=== PATIENT | female | born 1970 | race Caucasian/White ===

== ENCOUNTER 2017-09-25 14:30 | Emergency (ER) | payer OTHER, SELFPAY ==
[2017-09-25 14:33] VITALS: BP 139/96; PULSE 87; RESP 18; TEMP 37.2; O2SAT 98; BMI 29.3
--- NOTE | 2017-09-25 15:43 | ED.VISSUMM ---
- ER Visit Summary Date of Service: 09/25/17 Chief Complaint: Back pain History of Present Illness: The patient is a [address] Cevallos. She reports that on September 10 she injured her back at work bending and putting weight a box of lemonade. States that since that time she has had a continuous sharp pain. Radiates down the back of her right leg to the level of her calf. Radiates down the back of her left leg and then wrap around to the top of her foot. She denies any numbness or weakness in her legs. No problems with her bowels or her bladder. No groin numbness. Physical Examination: Vitals: Stable. Afebrile. General: A&O x 3. NAD. Cardiovascular exam: Regular rate and rhythm, no murmur, rub or gallop. Respiratory exam: Clear to auscultation bilaterally. No wheezes or stridor. Abdominal exam: Soft, nontender, nondistended, normal bowel sounds. No peritoneal signs. Back: Diffuse moderate tenderness to palpation over the lumbar spine and the paraspinous musculature in the lumbar region. No point tenderness. Negative straight leg bilaterally. 5/5 DF, PF, EHL bilaterally. Normal sensation to light touch throughout. Extremity: No clubbing, cyanosis, or edema. Emergency Department Course and Treatment: Patient had an OARS report obtained and it was negative. She was treated with prednisone, naproxen, and Lutz. Treatment Plan: Patient will be discharged on the above medications. I suspect that she has a herniated disc causing radiculopathy and feel that the prednisone may help. She is instructed to follow-up with [facility] in 1 week for another exam. The signs and symptoms of cauda equina syndrome were discussed. The patient is instructed to return for these. Disposition: To home in improved and stable condition. Impression: 1. Lumbar strain with radiculopathy. This note was generated with [employer] dictation software. It may contain incorrect words, spelling, and punctuation that were not noted in review of the chart prior to signing ED Disposition - Plan for ED Patient: Disposition: Home or Assisted Living Chief Complaint: Back Instructions: ED Sciatica Prescriptions: Hydrocodone Bitart/Apap 5-325 [Lutz 5/325] 1 - 2 tablet PO Q4H PRN PRN 5 Days #20 tablet PRN Reason: Pain Naproxen [Naprosyn] 500 mg PO BID PRN #20 tablet Prednisone 10 mg PO DAILY #63 tablet Referrals: [facility] [GROUP OF PHYSICIANS] - 1 Week
--- NOTE | 2017-09-25 15:46 | ED.DCSUM_ITS ---
- ER Visit Summary Date of Service: 09/25/17 Chief Complaint: Back pain History of Present Illness: The patient is a [address] Cevallos. She reports that on September 10 she injured her back at work bending and putting weight a box of lemonade. States that since that time she has had a continuous sharp pain. Radiates down the back of her right leg to the level of her calf. Radiates down the back of her left leg and then wrap around to the top of her foot. She denies any numbness or weakness in her legs. No problems with her bowels or her bladder. No groin numbness. Physical Examination: Vitals: Stable. Afebrile. General: A&O x 3. NAD. Cardiovascular exam: Regular rate and rhythm, no murmur, rub or gallop. Respiratory exam: Clear to auscultation bilaterally. No wheezes or stridor. Abdominal exam: Soft, nontender, nondistended, normal bowel sounds. No peritoneal signs. Back: Diffuse moderate tenderness to palpation over the lumbar spine and the paraspinous musculature in the lumbar region. No point tenderness. Negative straight leg bilaterally. 5/5 DF, PF, EHL bilaterally. Normal sensation to light touch throughout. Extremity: No clubbing, cyanosis, or edema. Emergency Department Course and Treatment: Patient had an OARS report obtained and it was negative. She was treated with prednisone, naproxen, and [place]. Treatment Plan: Patient will be discharged on the above medications. I suspect that she has a herniated disc causing radiculopathy and feel that the prednisone may help. She is instructed to follow-up with [facility] in 1 week for another exam. The signs and symptoms of cauda equina syndrome were discussed. The patient is instructed to return for these. Disposition: To home in improved and stable condition. Impression: 1. Lumbar strain with radiculopathy. This note was generated with [employer] dictation software. It may contain incorrect words, spelling, and punctuation that were not noted in review of the chart prior to signing ED Disposition - Plan for ED Patient: Disposition: Home or Assisted Living Chief Complaint: Back Instructions: ED Sciatica Prescriptions: Hydrocodone Bitart/Apap 5-325 [[place] 5/325] 1 - 2 tablet PO Q4H PRN PRN 5 Days # 20 tablet PRN Reason: Pain Naproxen [Naprosyn] 500 mg PO BID PRN #20 tablet Prednisone 10 mg PO DAILY #63 tablet Referrals: [facility] [GROUP OF PHYSICIANS] - 1 Week
[2017-09-25] MEDS: HYDROcodone Bitartrate/Apap 5/325 Tablet PO (15:58)
[2017-09-25] MEDS: Naproxen 250 MG Tablet 500 MG PO (15:59)
[2017-09-25 16:02] VITALS: PULSE 78; RESP 16
--- NOTE | 2017-09-25 16:03 | ED.RN ---
THIS NURSE REVIEWED D/C INSTRUCTIONS WITH PT. PT VERBALIZED UNDERSTANDING OF INSTRUCTIONS. PT DENIES FURTHER NEEDS OR QUESTIONS AT THIS TIME. PT AMBULATES FROM THE DEPARTMENT ON OWN WITHOUT ASSISTANCE FROM STAFF
== END 2017-09-25 16:03 | disposition home or self-care (01) ==
PROVIDERS: Emergency Provider Emergency Medicine
DX: S39.012A Strain of muscle, fascia and tendon of lower back, initial encounter (principal); M54.16 Radiculopathy, lumbar region; X50.1XXA Overexertion from prolonged static or awkward postures, initial encounter; Y93.9 Activity, unspecified; Y92.9 Unspecified place or not applicable
CPT/HCPCS: 99283

== ENCOUNTER → 2017-10-10 15:18 | Outpatient (CLI) | payer OTHER, SELFPAY ==
--- NOTE | 2017-10-10 15:25 | MRI_ITS ---
STUDY: MRI LUMBAR SPINE WITHOUT CONTRAST REASON FOR EXAM: Female, 47 years old. Lower back pain and in both legs. TECHNIQUE: Standardized fat and water weighted pulse sequences were obtained in the sagittal and axial planes. COMPARISON: None FINDINGS: T12-L1: (Sagittal only). Normal endplates. Normal disc height, hydration and morphology. Normal central canal and bilateral intervertebral neural foramina. Normal lumbar lordosis. There is no substantial scoliosis. Normal conus medullaris that terminates at the mid L1 vertebral body level. L1-2: Normal endplates. Normal disc height, hydration and morphology. Normal bilateral facet joints. Normal central canal and bilateral lateral recesses. Normal bilateral intervertebral neural foramina. L2-3: Normal endplates. Normal disc height, hydration and morphology. Normal bilateral facet joints. Normal central canal and bilateral lateral recesses. Normal bilateral intervertebral neural foramina. L3-4: Normal endplates. Normal disc height, hydration and morphology. Normal bilateral facet joints. Normal central canal and bilateral lateral recesses. Normal bilateral intervertebral neural foramina. L4-5: Normal endplates. Normal disc height, hydration and morphology. Normal bilateral facet joints. Normal central canal and bilateral lateral recesses. Normal bilateral intervertebral neural foramina. L5-S1: Normal endplates. Normal disc height and hydration. Small right posterior paramedian disc protrusion (series 5, image 3). Normal central canal and bilateral lateral recesses. Mild bilateral degenerative facet arthropathy. Normal bilateral intervertebral neural foramina. Normal visualized sacral ala. Normal visualized paraspinous soft tissue structures. MRI/Spine Lumbar (Routine) IMPRESSION: 1. Small right L5-S1 posterior paramedian disc protrusion. 2. No MRI evidence of lumbar extruded disc fragment, spinal stenosis or nerve root displacement. Electronically Signed: Domenic Baer MD at 9:35 EDT , Service support ,
== END ==
PROVIDERS: Visit Provider Physician Assistant Surgical
DX: S39.012A Strain of muscle, fascia and tendon of lower back, initial encounter (principal); X58.XXXA Exposure to other specified factors, initial encounter; M54.16 Radiculopathy, lumbar region
CPT/HCPCS: 72148

== ENCOUNTER → 2017-12-09 14:00 | Outpatient (CLI) | payer OTHER, SELFPAY ==
[2017-12-14 10:49] LABS: HPV APTIMA, High Risk Negative (Negative)
== END ==
PROVIDERS: Visit Provider Nurse Practitioner Women's Health
DX: Z12.4 Encounter for screening for malignant neoplasm of cervix (principal)
CPT/HCPCS: 88175; G0145

== ENCOUNTER → 2017-12-28 07:15 | Outpatient (CLI) | payer OTHER, SELFPAY ==
--- NOTE | 2017-12-28 07:39 | BI_ITS ---
MAMMOGRAPHY - BILATERAL SCREENING 3-D PAULA SYNTHESIS REASON FOR EXAM: Female, 47 years old. Bilateral Screening 3-D tomosynthesis PERTINENT HISTORY: No significant family history. TECHNIQUE: 2-D mammograms and 3-D Paula synthesis of the breast (s) were performed. CAD was performed. COMPARISON: November 06, 2016, January 17, 2016 FINDINGS: The breast composition is composed of scattered fibroglandular density. Scattered benign calcifications are seen. No dense spiculated masses or suspicious microcalcifications are identified. No architectural distortion is identified. There is no skin thickening or retraction. There has been no significant change since the prior study. BI/SCREENING MAMM (CAD), BILAT IMPRESSION: No mammographic signs of malignancy. Routine yearly mammograms recommended. ASSESSMENT CATEGORY: BIRADS Category 2: Benign. A letter regarding these results will be sent to the patient by the facility within 30 days. FOLLOW UP RECOMMENDATION: Yearly follow up mammogram recommended. (A) Approximately 10% of breast cancers are not detected by mammography. A normal mammogram should not delay biopsy of a clinically suspicious abnormality. Electronically Signed: Frandy Chapa MD at 17:32 EDT , Service support ,
== END ==
PROVIDERS: Visit Provider Nurse Practitioner Women's Health
DX: Z12.31 Encounter for screening mammogram for malignant neoplasm of breast (principal)
CPT/HCPCS: 77063; 77067

== ENCOUNTER → 2019-05-21 07:29 | Outpatient (CLI) | payer BC, SELFPAY ==
--- NOTE | 2019-05-21 07:33 | BI_ITS ---
MAMMOGRAPHY - BILATERAL SCREENING REASON FOR EXAM: Female, 48 years old. Routine annual screening examination. PERTINENT HISTORY: Non-contributory. TECHNIQUE: Digital bilateral breast paula (3D mammographic acquisition) in the CC and MLO projections. 2-D mediolateral oblique (MLO) and craniocaudad (CC) views of both breasts were obtained. CAD: Full Field Digital Mammography with Computer Added Detection was performed. COMPARISON: Comparison is made with prior study dated January 03, 2018. FINDINGS: Breast Composition: The breasts are heterogeneously dense, which may obscure small masses. There are no dominant masses or suspicious calcifications. No other significant abnormalities are identified. There has been no significant change since the prior study. BI/SCREEN MAMM (CAD) W/PAULA BILAT IMPRESSION: Stable bilateral screening mammogram. Yearly follow-up mammogram recommended. (A) ASSESSMENT CATEGORY: BIRADS Category 1: Negative. A letter regarding these results will be sent to the patient by the facility within 30 days. Approximately 10% of breast cancers are not detected by mammography. A normal mammogram should not delay biopsy of a clinically suspicious abnormality. [id number] Electronically Signed: Leon Lemus, at 8:54 EDT , Service support ,
== END ==
PROVIDERS: Referring Provider Nurse Practitioner Women's Health; Visit Provider Nurse Practitioner Women's Health
DX: Z12.31 Encounter for screening mammogram for malignant neoplasm of breast (principal)
CPT/HCPCS: 77063; 77067

== ENCOUNTER → 2019-09-01 | Outpatient (CLI) | payer BC, SELFPAY ==
[2019-09-01 08:47] VITALS: BMI 29.5
[2019-09-03 20:51] LABS: HPV APTIMA, High Risk Negative (Negative)
== END | disposition home or self-care (01) ==
LOC: LABSPEC 13:12
PROVIDERS: Referring Provider Nurse Practitioner Women's Health; Visit Provider Nurse Practitioner Women's Health
DX: Z12.4 Encounter for screening for malignant neoplasm of cervix (principal)
CPT/HCPCS: 87624; 88175; G0145

== ENCOUNTER → 2020-08-26 07:24 | Outpatient (CLI) | payer BC, SELFPAY ==
[2019-09-01 08:47] VITALS: BMI 29.5
--- NOTE | 2020-08-25 16:35 | BI_ITS ---
MAMMOGRAPHY - BILATERAL SCREENING REASON FOR EXAM: Female, 50 years old. Routine annual screening examination. PERTINENT HISTORY: Non-contributory. TECHNIQUE: Digital bilateral breast paula (3D mammographic acquisition) in the CC and MLO projections. 2-D mediolateral oblique (MLO) and craniocaudad (CC) views of both breasts were obtained. CAD: Full Field Digital Mammography with Computer Added Detection was performed. COMPARISON: Comparison is made with prior study dated 05/21/2019 and 12/28/2017. FINDINGS: Breast Composition: The breasts are heterogeneously dense, which may obscure small masses. There are no dominant masses or suspicious calcifications. This is an 8.5 mm by 8mm well-defined nodule in the deep central portion of the right breast abutting the chest wall. Correlation with ultrasound is recommended. No other significant abnormalities are identified. BI/SCRN MAMM (CAD)W/PAULA BILAT IMPRESSION: 8.5 mm x 8 mm well-defined nodule in the deep central portion of the right breast abutting the chest wall. Correlation with ultrasound is recommended. ASSESSMENT CATEGORY: BIRADS Category 0: Incomplete. Need additional imaging evaluation. A letter regarding these results will be sent to the patient by the facility within 30 days. Approximately 10% of breast cancers are not detected by mammography. A normal mammogram should not delay biopsy of a clinically suspicious abnormality. [id number] Electronically Signed: Leon Lemus MD at 8:36 EST , Service support ,
== END ==
PROVIDERS: Referring Provider Nurse Practitioner Women's Health; Visit Provider Nurse Practitioner Women's Health
DX: Z12.31 Encounter for screening mammogram for malignant neoplasm of breast (principal)
CPT/HCPCS: 77063; 77067

== ENCOUNTER → 2020-08-29 08:27 | Outpatient (CLI) | payer BC, SELFPAY ==
[2019-09-01 08:47] VITALS: BMI 29.5
--- NOTE | 2020-08-29 08:28 | US_ITS ---
STUDY: ULTRASOUND BREAST - RIGHT REASON FOR EXAM: Female, 50 years old. Abnormal screening mammogram. TECHNIQUE: Axial and longitudinal images of the RIGHT breast were performed with a high resolution ultrasound transducer. # OF IMAGES: 44 COMPARISON: Comparison is made with prior mammogram dated 08/25/2020. FINDINGS: RIGHT Breast: There is a 5.5 mm x 4.5 mm cyst at the 10 o''clock position breast 2 cm from nipple. No abnormality is seen deep along the chest wall. This most likely represents small amount of fibroglandular tissue. US/Breast Limited Unilateral IMPRESSION: 5.5 mm x 4.5 mm cyst at the 10 o''clock position of the breast at 2 cm from the nipple. ASSESSMENT CATEGORY: BIRADS Category 0: Incomplete. Need additional imaging evaluation. A letter regarding these results will be sent to the patient by the facility within 30 days. Electronically Signed: Leon Lemus MD at 9:36 EST , Service support ,
== END ==
PROVIDERS: Referring Provider Nurse Practitioner Women's Health; Visit Provider Nurse Practitioner Women's Health
DX: N60.01 Solitary cyst of right breast (principal)
CPT/HCPCS: 76642

== ENCOUNTER 2021-09-12 08:19 | Outpatient (CLI) | payer BC, SELFPAY ==
--- NOTE | 2021-09-12 08:21 | BI_ITS ---
MAMMOGRAPHY - BILATERAL SCREENING REASON FOR EXAM: Female, 51 years old. Routine annual screening examination. PERTINENT HISTORY: Non-contributory. TECHNIQUE: Digital bilateral breast paula (3D mammographic acquisition) in the CC and MLO projections. 2-D mediolateral oblique (MLO) and craniocaudad (CC) views of both breasts were obtained. CAD: Full Field Digital Mammography with Computer Added Detection was performed. COMPARISON: Comparison is made with prior study dated 08/17/2020 and 05/21/2019. FINDINGS: Breast Composition: The breasts are heterogeneously dense, which may obscure small masses. There are no dominant masses or suspicious calcifications. Stable 8.5 mm x 8 mm well-defined nodule in the deep central portion of the right breast abutting the chest wall. Repeat targeted ultrasound of this nodule is recommended. No other significant abnormalities are identified. BI/SCRN MAMM (CAD)W/PAULA BILAT IMPRESSION: Stable bilateral screening mammogram. Repeat sonogram of the nodular density in the deep central portion of the right breast is recommended. ASSESSMENT CATEGORY: BIRADS Category 0: Incomplete. Need additional imaging evaluation. A letter regarding these results will be sent to the patient by the facility within 30 days. Approximately 10% of breast cancers are not detected by mammography. A normal mammogram should not delay biopsy of a clinically suspicious abnormality. [id number] Electronically Signed: Leon Lemus MD at 9:13 EST ,
== END 2021-09-12 23:59 | disposition home or self-care (01) ==
LOC: OPBI 08:19
PROVIDERS: PCP Family Medicine; Referring Provider Nurse Practitioner Women's Health; Visit Provider Nurse Practitioner Women's Health
DX: Z12.31 Encounter for screening mammogram for malignant neoplasm of breast (principal)
CPT/HCPCS: 77063; 77067

== ENCOUNTER 2021-09-20 12:14 | Outpatient (CLI) | payer BC, SELFPAY ==
--- NOTE | 2021-09-20 12:17 | US_ITS ---
STUDY: ULTRASOUND BREAST - RIGHT REASON FOR EXAM: Female, 51 years old. Abnormal screening mammogram. TECHNIQUE: Axial and longitudinal images of the RIGHT breast were performed with a high resolution ultrasound transducer. # OF IMAGES: 42 COMPARISON: Comparison is made with prior mammogram dated 08/29/2020. FINDINGS: RIGHT Breast: The mammographic abnormality corresponds to a 5 mm x 5 mm x 5 mm cyst at the 10 o''clock position of the breast at 2 cm from the nipple. Ultrasound examination of the deep central portion of the breast does not demonstrate any abnormality. US/Breast Limited Unilateral IMPRESSION: The mammographic abnormality corresponds with 5 mm x 5 mm x 5 mm cyst at the 10 o''clock position of the breast at 2 cm from the nipple. ASSESSMENT CATEGORY: BIRADS Category 2: Benign. A letter regarding these results will be sent to the patient by the facility within 30 days. Electronically Signed: Leon Lemus MD at 13:22 EST ,
== END 2021-09-20 23:59 | disposition home or self-care (01) ==
LOC: OPUS 12:15
PROVIDERS: PCP Family Medicine; Referring Provider Nurse Practitioner Women's Health; Visit Provider Nurse Practitioner Women's Health
DX: N63.41 Unspecified lump in right breast, subareolar (principal)
CPT/HCPCS: 76642

== ENCOUNTER 2021-09-26 07:48 | Day surgery (SDC) | payer BC, SELFPAY ==
[2021-09-26] VITALS (7 sets, daily range): BP systolic 99–134; BP diastolic 61–79; PULSE 68–81; RESP 16; TEMP 36.1–36.6; O2SAT 98–100; BMI 28.8
--- NOTE | 2021-09-26 | IMM_PTH ---
PATIENT: NICHOLAS BUTTS LOC: EN U#:[id number] AGE/SX: 51/F ROOM: RE09/26/[address]: Dr. Ralph Santoyo MD : 1970 BED: DIS: 09/26/2021 SPEC #: [id number] RECD: 09/27/21 07:38 STATUS: BRAYAN REMary #: [id number] YADY: 09/26/21 00:[address]: Ralph Santoyo DEPT: IMMUNOHISTOCHEMISTRY RECD BY: Radha Brooks ENTERED: 09/27/21 07:39 SP TYPE: IMMUNO OTHR DR: Dr. Shahla Florez, DO Tissues: A - Stomach, NOS Procedures: H Pylori (initial) PHYSICIAN & INSTITUTION [place] [id number] SPECIMEN INFORMATION: Tissue Source: A - Antrum Clinical Info: LUQ abdominal pain Specimen Number: [id number] CPT code: 87624 METHODOLOGY: Deparaffinized sections of prefer/formalin-fixed tissue or PAP/DQ stained slides are incubated with monoclonal/polyclonal antibodies/oligonucleotide probes. Localization is made via biotin free immunoperoxidase method. Appropriate controls are performed and reacted as expected. Results on target cell population are indicated in the following table: RESULTS: ANTIBODY / CLONE RESULT Block A H Pylori (polyclonal) negative These tests were developed and their performance characteristics determined by [facility]. They may not have been cleared or approved by the U.S. Food and Drug Administration. The FDA has determined that such clearance or approval is not necessary. INTERPRETATION: A. Antrum biopsy: Negative for Helicobacter pylori organisms. SJ:chuck 09/27/2021
--- NOTE | 2021-09-26 | GASB_PTH ---
PATIENT: NICHOLAS BUTTS LOC: EN U#:[id number] AGE/SX: 51/F ROOM: RE09/26/[address]: Dr. Ralph Santoyo MD : 1970 BED: DIS: 09/26/2021 SPEC #: [id number] RECD: 09/26/21 10:55 STATUS: BRAYAN REMary #: [id number] YADY: 09/26/21 00:[address]: Ralph Santoyo DEPT: SURGICAL PATHOLOGY RECD BY: Andrews Amaral ENTERED: 09/26/21 10:56 SP TYPE: Gastric Bx OTHR DR: Dr. Shahla Florez DO Tissues: A - Gastric mucous membrane B - Gastric mucous membrane Procedures: Special Stain Group II Surgery Specimen Level IV Alcian Blue/PAS (control) HEADER OPERATION: [place] [place] DIAGNOSIS: Left upper quadrant abdominal pain TISSUE SUBMITTED: A ? Antrum, H. pylori and path, B ? Gastroesophageal junction biopsy MICROSCOPIC DIAGNOSIS A. Antrum, biopsy: Mild gastritis. See microscopic description and comment. B. Gastroesophageal junction, biopsy: Fragments of gastroesophageal mucosa with mild chronic inflammation. Intestinal metaplasia (goblet cell metaplasia) not identified. See comment. SJ:rg 09/27/2021 COMMENT A. The results of immunohistochemistry for Helicobacter pylori will be reported separately ([id number]). A fragment is noted consistent entirely with actinomyces colony, most likely represents mouth contaminant. B. Alcian blue/PAS stain with matched control is used in the evaluation of the specimen. MICROSCOPIC DESCRIPTION Slides are reviewed. A. The specimen shows fragments of gastric mucosa with chronic inflammatory cell infiltrates in the lamina propria consisting of lymphocytes and plasma cells, consistent with mild chronic gastritis. GROSS DESCRIPTION A - Received in fixative is one container labeled with the patient's name and designated antrum biopsy. The specimen consists of multiple irregular fragments of light ocampo soft tissue that in aggregate measure 0.8 x 0.5 x 0.1 cm. The specimen is totally submitted in one cassette. B - Received in fixative is one container labeled with the patient's name and designated GE junction biopsy. The specimen consists of multiple irregular fragments of light ocampo soft tissue that in aggregate measure 0.8 x 0.2 x 0.1 cm. The specimen is totally submitted in one cassette. / SJ:rg 09/26/2021 TC:5 CPT: 73729 x2, 04449
[2021-09-26] MEDS: Lactated Ringers 1,000 ML 15 ML IV (08:22)
--- NOTE | 2021-09-26 08:43 | PCM.HP.BLA ---
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 Is patient in pain?: No Allergies Sulfa (Sulfonamide Antibiotics) Allergy (Verified 09/20/21 15:06) Other Medications ascorbate calcium (vitamin C) 500 mg tablet 500 mg PO DAILY 09/05/20 [History Confirmed 09/20/21] cyanocobalamin (vitamin B-12) 1,000 mcg capsule 1,000 mcg PO DAILY 09/05/20 [History Confirmed 09/20/21] zinc 50 mg tablet 50 mg PO DAILY 09/05/20 [History Confirmed 09/20/21] baclofen 5 mg tablet 5 mg PO BID PRN 09/12/21 [History Confirmed 09/20/21] pseudoephedrine HCl 30 mg tablet 30 mg PO ONCE PRN 09/12/21 [History Confirmed 09/20/21] omeprazole magnesium 20 mg tablet,delayed release 40 mg PO DAILY tab 09/20/21 [History Confirmed 09/20/21] [facility] Medical History (Updated 09/20/21 @ 15:[address] Ralph Santoyo MD) Acid reflux Lumbar strain Posterior herniation of lumbar disc Surgical History Hx of removal of ovary Hx of tympanostomy tubes Family History Father Heart disease Brother Myocardial infarction Other Cancer Hypertension Social History household members: family housing: house current occupational status: employed pets and animals: No Smoking Status: Never smoker second hand exposure: No alcohol intake: never substance use type: does not use caffeine: Yes what type of physical activity do you participate in: none seatbelt use: always do you feel safe at home: Yes additional social history: [employer] Patient works at [employer] Raised 3 step children HPI HPI HPI: NICHOLAS BUTTS, is a 51 F who presents to the office today for left upper quadrant pain. Patient reports she started having left upper quadrant pain about a year ago and was put on omeprazole and this did not help. She stopped it and was taking it periodically and resumed it daily about 3 weeks ago and has had some minimal improvement. Patient also reports that she has this pain when she is constipated and having a bowel movement does improve it. It is only in the left upper quadrant and does not radiate. ROS General General: No weight change, appetite, fatigue, colon cancer, breast cancer or weakness HEENT HEENT: No difficulty swallowing, eye injury, eye surgery, swollen glands or hoarseness Endo Endocrine: No thyroid disease, diabetes mellitus, thyroid cancer, Hair loss, heat intolerance or cold intolerance Skin Skin: No rash or changing moles Musc Musculoskeletal: Yes back problems and arthritis; No rheumatoid arthritis, gout or joint pain Cardio Cardiovascular: No murmur, pacemaker, heart disease, atrial fibrillation, high blood pressure, heart attack, heart stent, palpitations, shortness of breat with exertion or chest pain Psych Psychiatric: Yes anxiety; No depression or hearing voices Resp Respiratory: No shortness of breath, No sleep apnea, No cough, No COPD, No asthma, No emphysema and No wheezing Gastro Gastrointestinal: Yes abdominal pain, No nausea or vomiting, No diarrhea, Yes constipation, No blood in stool, Yes acid reflux, No hemorrhoids, No ulcers, No gallbladder problem and No black,tarry stools Heath Hematologic: No blood thinners, Yes blood disorders, No bleeding, No anemia and No blood clots Additional Details: Low fibrinogen levels Neuro Neurologic: No system reviewed and no additional complaints, except as documented, No as per HPI, No abnormal gait, No abnormal hearing, No abnormal movements, No abnormal speech, No behavioral changes, No burning sensations, No confusion, No convulsions, No disequilibrium, No dizziness, No localized weakness, No frequent falls, No headache(s), No lack of coordination, No loss of vision, No memory loss, No numbness, No other visual disturbances, No radicular pain, No restless legs, No sensory deficit, No syncope, Yes tingling (In legs from back injury), No tremor(s), No weakness and No other Exam Const General: cooperative Orientation: alert and oriented x3 HENMT Head: normal to inspection Neck Neck: normal visual inspection and full ROM Chest Chest palpation & inspection: normal inspection of the chest Resp Effort & Inspection: normal respiratory effort Auscultation: clear to auscultation bilaterally Cardio Rate: regular rate Rhythm: regular rhythm GI Inspection: non-distended Palpation: soft and nontender Skin General: no rashes or lesions noted Neuro General: patient alert and patient oriented x3 Extrem General: full ROM Psych Appearance: grossly normal Mental Status: mental status grossly normal Assessment and Plan Assessment and Plan (1) LUQ abdominal pain: Status: Acute Orders: Orders: EGD Today Plan - Dr. Ralph Santoyo MD: Patient has left upper quadrant pain which may be gastritis or related to her constipation as both the omeprazole and having bowel movements did help. I advised her to start taking MiraLAX daily if she is not having normal bowel movements. I would recommend EGD and colonoscopy to evaluate. I explained endoscopy in detail to the patient. I explained the risks including but not limited to stroke or heart attack with anesthesia, perforation of the GI tract, bleeding, infection. I explained that any of these could necessitate further emergency surgery. The patient understands and all questions were answered sufficiently. The patient wishes to proceed with procedure. Ralph Santoyo MD Pager: [facility] [address] [place] [address], [address] [place] [address] Office: I have re-examined the patient. There are no clinical changes since date of exam.
--- NOTE | 2021-09-26 09:15 | OP.EGD_ITS ---
Patient Name: Lilo Kirk Procedure Date: 09/26/2021 8:44 AM Date of : 1970 Age: 51 Procedure: Upper GI endoscopy Indications: Abdominal pain in the left upper quadrant Providers: Ralph Santoyo MD Medicines: Monitored Anesthesia Care Patient Profile: This is a 51 year old female. Refer to note in patient chart for documentation of history and physical. Complications: No immediate complications. Estimated blood loss: Minimal. Procedure: Pre-Anesthesia Assessment: - Prior to the procedure, a History and Physical was performed, and patient medications and allergies were reviewed. The patient's tolerance of previous anesthesia was also reviewed. The risks and benefits of the procedure and the sedation options and risks were discussed with the patient. All questions were answered, and informed consent was obtained. Prior Anticoagulants: The patient has taken no previous anticoagulant or antiplatelet agents. After reviewing the risks and benefits, the patient was deemed in satisfactory condition to undergo the procedure. After obtaining informed consent, the endoscope was passed under direct vision. Throughout the procedure, the patient's blood pressure, pulse, and oxygen saturations were monitored continuously. The Endoscope was introduced through the mouth, and advanced to the second part of duodenum. The upper GI endoscopy was accomplished without difficulty. The patient tolerated the procedure well. Scope In: 8:54:10 AM Scope Out: 8:57:32 AM Total Procedure Duration Time 0 hours 3 minutes 22 seconds Findings: One tongue of salmon-colored mucosa was present. Biopsies were taken with a cold forceps for histology. The stomach was normal. The examined duodenum was normal. Biopsies were taken with a cold forceps in the gastric antrum for Helicobacter pylori testing. 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 Biopsied. - Normal stomach. - Normal examined duodenum. - Biopsies were taken with a cold forceps for Helicobacter pylori testing. Recommendation: - Discharge patient to home. - Resume previous diet. - Continue present medications. - Await pathology results. Procedure Code(s): --- Professional --- 84173, Esophagogastroduodenoscopy, flexible, transoral; with biopsy, single or multiple Diagnosis Code(s): --- Professional --- K22.8, Other specified diseases of esophagus R10.12, Left upper quadrant pain CPT copyright 2017 [employer]. All rights reserved. The codes documented in this report are preliminary and upon certified coder review may be revised to meet current compliance requirements. Ralph Santoyo MD 09/26/2021 9:14:11 AM This report has been signed electronically. Number of Addenda: 0 Note Initiated On: 09/26/2021 8:44 AM
--- NOTE | 2021-09-26 09:15 | OP.CCLET_ITS ---
09/26/2021 Shahla Florez Do Re : Upper GI endoscopy procedure for iLlo Kirk Dear Dr. Florez This procedure was performed on Sunday, September 26, 2021. 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 Biopsied. - Normal stomach. - Normal examined duodenum. - Biopsies were taken with a cold forceps for Helicobacter pylori testing. Recommendations : - Discharge patient to home. - Resume previous diet. - Continue present medications. - Await pathology results. My findings are described in the full procedure note, which is enclosed. If I can be of further assistance, please feel free to contact me at Doctor phone number(s): , Work: . Sincerely, Ralph Santoyo MD 09/26/2021 9:14:11 AM This report has been signed electronically.
--- NOTE | 2021-09-26 09:18 | OP.COLON_ITS ---
Patient Name: Lilo Kirk Procedure Date: 09/26/2021 8:59 AM Date of : 1970 Age: 51 Procedure: Colonoscopy Indications: Screening for colorectal malignant neoplasm Providers: Ralph Santoyo MD Medicines: Monitored Anesthesia Care Patient Profile: This is a 51 year old female. Refer to note in patient chart for documentation of history and physical. Last Colonoscopy: none. The patient's first colonoscopy is today. Complications: No immediate complications. Procedure: Pre-Anesthesia Assessment: - Prior to the procedure, a History and Physical was performed, and patient medications and allergies were reviewed. The patient's tolerance of previous anesthesia was also reviewed. The risks and benefits of the procedure and the sedation options and risks were discussed with the patient. All questions were answered, and informed consent was obtained. Prior Anticoagulants: The patient has taken no previous anticoagulant or antiplatelet agents. After reviewing the risks and benefits, the patient was deemed in satisfactory condition to undergo the procedure. - Prior to the procedure, a History and Physical was performed, and patient medications and allergies were reviewed. The patient's tolerance of previous anesthesia was also reviewed. The risks and benefits of the procedure and the sedation options and risks were discussed with the patient. All questions were answered, and informed consent was obtained. Prior Anticoagulants: The patient has taken no previous anticoagulant or antiplatelet agents. After reviewing the risks and benefits, the patient was deemed in satisfactory condition to undergo the procedure. After I obtained informed consent, the scope was passed under direct vision. Throughout the procedure, the patient's blood pressure, pulse, and oxygen saturations were monitored continuously. The colonoscope was introduced through the anus and advanced to the cecum, identified by appendiceal orifice and ileocecal valve. The colonoscopy was performed without difficulty. The patient tolerated the procedure well. The quality of the bowel preparation was good. Scope In: 9:00:07 AM Scope Withdrawal Time 0 hours 6 minutes 1 second Scope Out: 9:09:28 AM Total Procedure Duration Time 0 hours 9 minutes 21 seconds Findings: The entire examined colon appeared normal on direct and retroflexion views. Impression: - The entire examined colon is normal on direct and retroflexion views. - No specimens collected. Recommendation: - Discharge patient to home. - Resume previous diet. - Continue present medications. - Repeat colonoscopy in 10 years for screening purposes. Procedure Code(s): --- Professional --- 33603, Colonoscopy, flexible; diagnostic, including collection of specimen(s) by brushing or washing, when performed (separate procedure) Diagnosis Code(s): --- Professional --- Z12.11, Encounter for screening for malignant neoplasm of colon CPT copyright 2017 [employer]. All rights reserved. The codes documented in this report are preliminary and upon rn integrated review may be revised to meet current compliance requirements. Ralph Santoyo MD 09/26/2021 9:18:01 AM This report has been signed electronically. Number of Addenda: 0 Note Initiated On: 09/26/2021 8:59 AM
--- NOTE | 2021-09-26 09:18 | OP.CCLET_ITS ---
09/26/2021 Shahla Florez Do Re : Colonoscopy procedure for Lilo Kirk Dear Dr. Florez This procedure was performed on Sunday, September 26, 2021. My impressions and recommendations are as follows: Impressions : - The entire examined colon is normal on direct and retroflexion views. - No specimens collected. Recommendations : - Discharge patient to home. - Resume previous diet. - Continue present medications. - Repeat colonoscopy in 10 years for screening purposes. My findings are described in the full procedure note, which is enclosed. If I can be of further assistance, please feel free to contact me at Doctor phone number(s): , Work: . Sincerely, Ralph Santoyo MD 09/26/2021 9:18:01 AM This report has been signed electronically.
== END 2021-09-26 23:59 | disposition home or self-care (01) ==
LOC: EN 07:57 → AC 07:58
PROVIDERS: PCP Family Medicine; Referring Provider Family Medicine; Visit Provider Surgery
PROC: 0DJD8ZZ Inspection of Lower Intestinal Tract, Via Natural or Artificial Opening Endoscopic (ICD-10-PCS; CPT 45378; principal; 2021-09-26 08:55)
DX: Z12.11 Encounter for screening for malignant neoplasm of colon (principal); K29.70 Gastritis, unspecified, without bleeding; K21.9 Gastro-esophageal reflux disease without esophagitis; M19.90 Unspecified osteoarthritis, unspecified site; G25.81 Restless legs syndrome; Z78.0 Asymptomatic menopausal state
CPT/HCPCS: 45378; 43239; 88305; 88313; 88342; J7120

== ENCOUNTER 2021-10-17 09:36 | Outpatient (CLI) | payer BC, SELFPAY ==
[2021-10-17 10:34] LABS: Estradiol 74.5 pg/mL; Follicle Stimulating Hormone 30.1 mIU/mL
== END 2021-10-17 23:59 | disposition home or self-care (01) ==
LOC: PAVLAB 09:38
PROVIDERS: PCP Family Medicine; Referring Provider Obstetrics & Gynecology; Visit Provider Obstetrics & Gynecology
DX: N95.0 Postmenopausal bleeding (principal)
CPT/HCPCS: 36415; 82670; 83001

== ENCOUNTER 2021-10-20 07:42 | Outpatient (CLI) | payer BC, SELFPAY ==
--- NOTE | 2021-10-20 07:44 | US_ITS ---
STUDY: ULTRASOUND OF THE FEMALE PELVIS - COMPLETE REASON FOR EXAM: Female, 51 years old. AUB LMP 2YRS AGO LMP: 2 years ago TECHNIQUE: Transabdominal and Transvaginal TECHNICAL QUALITY: Adequate. COMPARISON: None. FINDINGS: The uterus is anteverted and is tilted to the left side of the pelvis. The uterus measures 6.8 x 4.6 x 3.5 cm. Polypoid structure within the cervical canal measures 8 x 8 x 4 mm without discrete vascular flow. The endometrium measures 4.3 mm in thickness, and is hyperechoic. There is no demonstrated endometrial mass. There is no demonstrated myometrial mass. I.U.D. - The patient does not have an I.U.D. The right ovary is visualized. The right ovary measures 2.5 x 1.7 x 1.4 cm. There is no right ovarian cyst or ovarian mass. There is no visualized right adnexal mass or complex lesion. There is normal arterial and normal venous vascularity. The left ovary is non-visualized.. There is no fluid in the cul-de-sac. Visualized urinary bladder is unremarkable. US/Pelvic (Non ) IMPRESSION: 1. Possible endocervical canal polyp without vascular flow, measuring 8 x 8 x 4 mm. Electronically Signed: Neto Soria MD ([place]) at 16:10 EDT Reading Location ID and State: , Service support ,
--- NOTE | 2021-10-20 07:44 | US_ITS ---
STUDY: ULTRASOUND OF THE FEMALE PELVIS - COMPLETE REASON FOR EXAM: Female, 51 years old. AUB LMP 2YRS AGO LMP: 2 years ago TECHNIQUE: Transabdominal and Transvaginal TECHNICAL QUALITY: Adequate. COMPARISON: None. FINDINGS: The uterus is anteverted and is tilted to the left side of the pelvis. The uterus measures 6.8 x 4.6 x 3.5 cm. Polypoid structure within the cervical canal measures 8 x 8 x 4 mm without discrete vascular flow. The endometrium measures 4.3 mm in thickness, and is hyperechoic. There is no demonstrated endometrial mass. There is no demonstrated myometrial mass. I.U.D. - The patient does not have an I.U.D. The right ovary is visualized. The right ovary measures 2.5 x 1.7 x 1.4 cm. There is no right ovarian cyst or ovarian mass. There is no visualized right adnexal mass or complex lesion. There is normal arterial and normal venous vascularity. The left ovary is non-visualized.. There is no fluid in the cul-de-sac. Visualized urinary bladder is unremarkable. US/Transvaginal Non- IMPRESSION: 1. Possible endocervical canal polyp without vascular flow, measuring 8 x 8 x 4 mm. Electronically Signed: Neto Soria MD ([place]) at 16:10 EDT Reading Location ID and State: , Service support ,
--- NOTE | 2021-10-20 09:42 | RAD_ITS ---
STUDY: X-RAY - LEFT SHOULDER REASON FOR EXAM: Female, 51 years old. SHOULDER PAIN TECHNIQUE: 4 view(s) of the shoulder. COMPARISON: None. FINDINGS: Normal glenohumeral articulation. Normal acromioclavicular joint. Normal acromion. Normal humeral head and visualized proximal humerus. The soft tissue structures are unremarkable. Normal visualized pulmonary apex. RAD/Shoulder min 2 Views IMPRESSION: Normal x-ray examination of the shoulder. Electronically Signed: Prieto Crouch MD at 10:52 EDT ,
--- NOTE | 2021-10-20 09:44 | RAD_ITS ---
STUDY: X-RAY - CERVICAL SPINE REASON FOR EXAM: Female, 51 years old. NECK PAIN TECHNIQUE: 5 view(s) of the cervical spine were obtained. COMPARISON: None FINDINGS: Normal anterior atlantoaxial articulation. Normal odontoid process. Normal cervical lordosis. Normal vertebral bodies and endplates. Focal disc space narrowing and osteophyte formation at C5/C6 consistent with degenerative disc disease. Normal visualized intervertebral neuroforamina. The soft tissue structures are unremarkable. RAD/Cerv Spine 4 or 5 Views IMPRESSION: Focal moderate degenerative disc disease at C5/C6. MRI would be useful. Electronically Signed: Prieto Crouch MD at 10:52 EDT ,
== END 2021-10-20 23:59 | disposition home or self-care (01) ==
LOC: US 07:43 → RAD 09:41
PROVIDERS: PCP Family Medicine; Referring Provider Nurse Practitioner Family; Visit Provider Nurse Practitioner Family
DX: M54.2 Cervicalgia (principal); M25.512 Pain in left shoulder
CPT/HCPCS: 72050; 73030; 76830; 76856

== ENCOUNTER 2021-11-28 09:24 | Day surgery (SDC) | payer BC, SELFPAY ==
[2021-11-28] VITALS (8 sets, daily range): BP systolic 136–171; BP diastolic 73–95; PULSE 51–63; RESP 16–18; TEMP 36.1–36.3; O2SAT 95–99; BMI 29.7
[2021-11-28] MEDS: Lactated Ringers 1,000 ML 15 ML IV (09:40)
[2021-11-28 10:08] LABS: Absolute Lymphocyte Count 1.57 X10^3/uL (0.83-4.51); Absolute Neutrophil Count 2.9 X10^3/uL (2.0-7.7); Basophil# 0.03 X10^3/uL; Basophil% 0.6 % (0-1); Eosinophil# 0.09 X10^3/uL; Eosinophils% 1.8 % (0-5); Hematocrit 43.5 % (37-47); Hemoglobin 14.3 g/dL (12.0-15.0); Lymphocyte # 1.57 X10^3/ul (0.83-4.51); Lymphocyte % 31.6 % (19-41); Mean Corp Hgb Conc 32.9 g/dL (32-36); Mean Corpuscular Hgb 31.5 pg (27.0-32.0); Mean Corpuscular Volume 95.8 fL (81-99); Mean Platelet Vol. 9.9 fl (6.2-12.0); Monocyte# 0.35 X10^3/uL; NRBC Flagged by Analyzer 0 % (0-5); Neutrophil # 2.91 X10^3/uL (2.7-7.7); Neutrophil % 58.6 % (47-70); Platelet Count 280 K/mm3 (150-450); RBC Distribution Width CV 12.8 % (11.6-14.6); RBC Distribution Width SD 45.1 fl (35.1-43.9); Red Blood Count 4.54 M/mm3 (4.2-5.4)
--- NOTE | 2021-11-28 11:00 | EMB_PTH ---
PATIENT: NICHOLAS BUTTS LOC: [facility] U#:[id number] AGE/SX: 51/F ROOM: RE11/28/[address]: Dr. Amita Bernal MD : 1970 BED: DIS: 11/28/2021 SPEC #: [id number] RECD: 11/28/21 18:55 STATUS: BRAYAN REMary #: [id number] YADY: 11/28/21 11:[address]: Amita Bernal DEPT: SURGICAL PATHOLOGY RECD BY: Miguelina Schreiber ENTERED: 11/29/21 09:29 SP TYPE: ENDOM BX/C TOM DR: Dr. Shahla Florez DO Tissues: Endometrium, NOS Procedures: Surgery Specimen Level IV HEADER OPERATION: Hysteroscopy PRE-OP DIAGNOSIS: Postmenopausal bleeding, Cervical stenosis TISSUE SUBMITTED: Endometrial Curettings MICROSCOPIC DIAGNOSIS Endometrium, curettings: Scant strips of benign superficial endocervix and endometrium. Rare fragments of detached benign squamous mucosa. AM:chuck 11/30/2021 MICROSCOPIC DESCRIPTION Slides are reviewed. GROSS DESCRIPTION Received in fixative is one container labeled with the patient's name and designated endometrial curettings. The specimen consists of multiple fragments of hemorrhagic soft tissue that in aggregate measure 2.5 x 1 x 0.1 cm. The specimen is totally submitted in one cassette. / SJ:chuck 11/29/2021 TC:5 CPT: 42991
--- NOTE | 2021-11-28 12:30 | PCM.HP.BLA ---
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 Is patient in pain?: No Allergies Sulfa (Sulfonamide Antibiotics) Allergy (Verified 11/02/21 09:00) Other Medications omeprazole magnesium 20 mg tablet,delayed release 40 mg PO DAILY tab 09/20/21 [History Confirmed 11/02/21] Is last menstrual period known: No Post menopausal: No Patient : No : No PFSH Medical History Acid reflux Back pain Former smoker Gastric reflux History of steroid therapy Leg cramps Lumbar strain Post-menopausal Posterior herniation of lumbar disc Restless legs Wears glasses Wears hearing aid Surgical History Hx of removal of ovary Hx of tympanostomy tubes Family History Father Heart disease Brother Myocardial infarction Other Cancer Hypertension Social History household members: family housing: house current occupational status: employed pets and animals: No Smoking Status: Former smoker second hand exposure: No alcohol intake: never substance use type: does not use caffeine: Yes what type of physical activity do you participate in: none seatbelt use: always do you feel safe at home: Yes additional social history: [email or web address] Patient works at [employer] Raised 3 step children HPI U/S REVIEW Details: NICHOLAS BUTTS is a 51 year old who presents for consultaiton. she had an episode of postmenopausal bleeding with clots lasted a few days, had been postmenopausal over a year, she had a visit and had cervical stenosis so unable to have sampling. Ultrasound shows endometrial polyp. she denies any pelvic pain or pressure. Female Reproductive History Menopausal Symptoms: No night sweats Pregancy History 0 Elective abortions Hx Para Spontaneous abortions Hx # Term Pregnancies Ectopic pregnancies Hx # Pregnancies Multiple births # of living children ROS Const Constitutional: Denies fatigue, fever(s), headache(s), increased appetite, poor appetite, night sweats, weight gain or weight loss ENT ENT: Reports system reviewed and no additional complaints, except as documented Cardio Card: Denies chest pain Resp Resp: Denies cough or dyspnea GI GI: Reports as per HPI; Denies abdominal pain, constipation, nausea or vomiting : Denies nipple discharge, urinary frequency, urinary incontinence, urinary hesitancy, urinary urgency, vaginal discharge, vaginal dryness, vaginal odor or vaginal pruritus Musc Musc: Denies arthralgias, back pain or muscle weakness Skin Skin/Breast: Denies alopecia, change in hair, dry skin, breast mass, breast pain, breast skin changes or nipple discharge Neuro Neuro: Reports system reviewed and no additional complaints, except as documented Psych Psych: Reports system reviewed and no additional complaints, except as documented Endo Endo: Denies cold intolerance, excessive sweating, heat intolerance or polydipsia Heath/Lymph Hematologic/Lymphatic: Denies easy bleeding, Denies easy bruising and Denies lymphadenopathy Exam Const General: cooperative, healthy appearing, comfortable, no acute distress and well developed Nutritional Appearance: average body habitus Orientation: alert [facility] Head: normal to inspection and normocephalic Ears: hearing grossly normal bilaterally and external ears normal Nose: external nose normal and nares normal Face and sinus: normal facial exam Neck Neck: normal visual inspection and trachea midline Thyroid: thyroid normal Chest Chest palpation & inspection: normal inspection of the chest Resp Effort & Inspection: normal respiratory effort Auscultation: clear to auscultation bilaterally Cardio Rate: regular rate Rhythm: regular rhythm Heart Sounds: S1 normal and S2 normal GI Inspection: normal to inspection and non-distended Palpation: soft and no hepatosplenomegaly Musc Other: gross motor intact no deficits, full bilateral strength Skin General: no rashes or lesions noted Neuro General: patient alert, patient awake, moves all extremities and no focal motor deficits Motor: muscle tone normal throughout Extrem General: normal to inspection and no pedal edema Psych Appearance: grossly normal Mental Status: mental status grossly normal Affect: normal affect Speech and Movement: speech and movement normal Coding Level of Care Code Off vis,est,level 4 Diagnoses Postmenopausal bleeding N95.0 Cervical stenosis (uterine cervix) N88.2 Assessment and Plan Assessment and Plan (1) Postmenopausal bleeding: Status: Acute Comment: polyp present plan d and c hysteroscopy symphion (2) Cervical stenosis (uterine cervix): Status: Acute Comment: recommend cytotec prep if needs endometrial evaluation Plan - Dr. Amita Bernal MD: After discussing the patient's diagnosis and treatment plan options, patient wishes to proceed with surgical management. I have discussed with the patient the risks, benefits, and alternatives of the procedure which include but are not limited to risks of anesthesia, bleeding, infection, possible damage to bowel, bladder, or surrounding vasculature which could lead to additional surgery to evaluate any complications. Patient agrees to procedure and wishes to proceed. ACOG/uptodate references given for additional information regarding procedure. UPDATE- I have seen the patient and performed any clinically relevant updates to the history and physical exam. Amita Bernal MD
--- NOTE | 2021-11-28 12:31 | OP.PCM_ITS ---
Problems Associated Problem List Diagnoses (1) Cervical stenosis (uterine cervix): (2) Postmenopausal bleeding: Report of Operation Date of Procedure: 11/28/21 Pre-Operative Diagnosis: see problem list Post-Operative Diagnosis: same Surgery/Procedure Performed:: D&C hysteroscopy learning support resource room teacher: None Type of Anesthesia: Local MAC Special Medications: none Specimen's removed: EMC Drains: none Estimated Blood Loss (mL): 50 Fluids Replaced: crystalloid Description of Procedure: Patient was prepped and draped in a normal sterile fashion under MAC anesthesia. A weighted speculum was placed in the vagina and the anterior lip of the cervix was grasped with a single-tooth tenaculum. A paracervical block was placed with 1% lidocaine. Cervix was progressively dilated to allow passage of a 5 mm hysteroscope. The lining was fully visualized and noted to havethin atrophic lining . Uterine sounded to 8 cm. Curettage was performed and minimal tisssue removed , sent to pathology. All instruments were removed from the vagina and excellent hemostasis was noted. Patient was awoken and taken to recovery in stable condition. Grafts/Implants Used: none Complications none Admit VTE Documentation VTE Present on Admission: No VTE Mechan Device Prophylaxis: SCD's Multi Select Codes Urinary/Genital Urinary/Genital CPT Codes: 91085 Hysteroscopy,EMC, Polypectomy
--- NOTE | 2021-11-28 12:31 | PCM.DC ---
Discharge Instructions Diet Discharge Diet: No restrictions Activity Discharge Activity: Return to Normal Activity, May Shower and May Take a Tub Bath (after 1 week) May resume sexual activity in: 1-2 weeks Weight Bearing Status: Weight bearing as tolerated Lifting Restrictions: none Dressing / Incision Call your doctor if you observe: Fever of 101 or Higher, Using more than 1 pad per hour, Shortness of breath and Uncontrolled pain Follow Up Care Please Follow Up With: Amita Bernal MD When: Call [phone] to schedule appointment. Test Results: Test results from this visit will be discussed in further detail at your follow-up appointment, if applicable. Discharge Plan Admission Attending Provider: Amita Bernal Primary Care Provider: Shahla Florez Discharge Orders/Prescriptions Prescriptions: New ibuprofen [ibuprofen] 600 MG tablet 600 mg PO Q6H PRN PRN (Reason: fever or pain) Qty: 30 RF: 0 Continued omeprazole magnesium [Prilosec OTC] 20 mg tablet,delayed release (DR/EC) 40 mg PO DAILY RF: 0 baclofen 10 mg tablet 10 mg PO PRN PRN (Reason: MUSCLE SPASMS) RF: 0 Sudafed 24 Hour 240 mg Tablet Extended Release 24 Hr 240 mg PO DAILY PRN (Reason: ALLERGIES) RF: 0 Referrals / Follow Up: Shahla Florez DO [Primary Care Provider] - Disposition Disposition (needs filled in before D/C Order can be placed): Home, Self Care
== END 2021-11-28 15:21 | disposition home or self-care (01) ==
LOC: SDC 09:30 → AC 09:31
PROVIDERS: PCP Family Medicine; Referring Provider Obstetrics & Gynecology; Visit Provider Obstetrics & Gynecology
PROC: 0UB98ZZ Excision of Uterus, Via Natural or Artificial Opening Endoscopic (ICD-10-PCS; CPT 58558; principal; 2021-11-28 10:45)
DX: N88.2 Stricture and stenosis of cervix uteri (principal); N95.0 Postmenopausal bleeding; Z87.891 Personal history of nicotine dependence; K21.9 Gastro-esophageal reflux disease without esophagitis
CPT/HCPCS: 58558; 00952; 36415; 85025; 86850; 86900; 86901; 88305; J7120; J2405

== ENCOUNTER → 2022-09-19 | Outpatient (CLI) | payer BC, SELFPAY ==
--- NOTE | 2022-09-19 08:02 | BI_ITS ---
MAMMOGRAPHY - BILATERAL SCREENING REASON FOR EXAM: Female, 52 years old. Routine annual screening examination. PERTINENT HISTORY: Non-contributory. TECHNIQUE: Digital bilateral breast paula (3D mammographic acquisition) in the CC and MLO projections. 2-D mediolateral oblique (MLO) and craniocaudad (CC) views of both breasts were obtained. CAD: Full Field Digital Mammography with Computer Added Detection was performed. COMPARISON: Comparison is made with prior study dated 09/12/2021 and 08/25/2020. FINDINGS: Breast Composition: The breasts are heterogeneously dense, which may obscure small masses. There are no dominant masses or suspicious calcifications. Stable 1 cm well-defined nodule in the deep central portion of the right breast abutting the chest wall. No other significant abnormalities are identified. There has been no significant change since the prior study. BI/SCRN MAMM (CAD)W/PAULA BILAT IMPRESSION: Stable bilateral screening mammogram. Yearly follow-up mammogram recommended. (A) ASSESSMENT CATEGORY: BIRADS Category 2: Benign. A letter regarding these results will be sent to the patient by the facility within 30 days. Approximately 10% of breast cancers are not detected by mammography. A normal mammogram should not delay biopsy of a clinically suspicious abnormality. [id number] Electronically Signed: Leon Lemus MD at 8:52 EST ,
== END | disposition home or self-care (01) ==
LOC: OPBI 08:01
PROVIDERS: PCP Family Medicine; Referring Provider Nurse Practitioner Women's Health; Visit Provider Nurse Practitioner Women's Health
DX: Z12.31 Encounter for screening mammogram for malignant neoplasm of breast (principal)
CPT/HCPCS: 77063; 77067

== ENCOUNTER → 2023-09-26 | Outpatient (CLI) | payer BC, SELFPAY ==
--- NOTE | 2023-09-26 08:46 | BI_ITS ---
MAMMOGRAPHY - BILATERAL SCREENING REASON FOR EXAM: Female, 53 years old. Routine annual screening examination. PERTINENT HISTORY: Non-contributory. TECHNIQUE: Digital bilateral breast paula (3D mammographic acquisition) in the CC and MLO projections. 2-D mediolateral oblique (MLO) and craniocaudad (CC) views of both breasts were obtained. CAD: Full Field Digital Mammography with Computer Added Detection was performed. COMPARISON: Comparison is made with prior study dated September 19, 2022 and September 12, 2021. FINDINGS: Breast Composition: The breasts are heterogeneously dense, which may obscure small masses. Stable 1 cm well-defined nodule in the deep central portion of the right breast abutting the chest wall. There is a 9.1 mm x 10.8 mm well-defined nodule in the upper lateral aspect of the right breast. Correlation with ultrasound is recommended. No other significant abnormalities are identified. There has been no significant change since the prior study. BI/SCRN MAMM (CAD)W/PAULA BILAT IMPRESSION: 9.1 mm x 10.8 mm well-defined nodule in the upper lateral aspect of the right breast. Correlation with ultrasound is recommended. ASSESSMENT CATEGORY: BIRADS Category 0: Incomplete. Need additional imaging evaluation. A letter regarding these results will be sent to the patient by the facility within 30 days. Approximately 10% of breast cancers are not detected by mammography. A normal mammogram should not delay biopsy of a clinically suspicious abnormality. [id number] Electronically Signed: Leon Lemus MD at 9:29 EST ,
--- OUTSIDE RECORDS SUMMARY | 2023-09-26 09:24 | XMS RPT_ITS | CCD ---
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 Name Role Phone Unavailable Primary Care Provider UnavailAzalea Vieyra Unavailable [phone] Alannah Alarcon DO Primary Care Provider Alannah Alarcon DO Primary Care Provider ALANNAH ALARCON Primary Care UnavailALANNAH Saha Primary Care Unavaila ARIANNA Bonilla Attending Unavailable ALANNAH ALARCON Referring UnavailALANNAH Saha Primary Care UnavailALANNAH Saha Referring Unavaila ALANNAH Posada Primary Care Unavaila RAFFI Villarreal Primary Care [facility] RAFFI HU Attending Un available RAFFI HU Primary Care Un available RAFFI HU Primary Care Un available ALEX FERNANDEZ Attending Unavailable Allergies Allergy Classification Reported Allergen(s) Allergy Type Date of Onset Reaction(s) Facility (6 sources) Sulfonamides (Antibiotic); Translations: [SULFA (SULFONAMIDE ANTIBIOTICS)] Propensity to adverse reactions 09-14-19 06 [facility] (1 source) Sulfacetamide Drug Allergy 10-06-19 16 [facility] Work Phone: (1 source) Sulfonamide; Translations: [sulfa drugs] Drug allergy Unable to walk (finding) [facility] [place] Medications Current Medications Medication Drug Class(es) Dates Sig (Normalized) Sig (Original) amoxicillin 875 mg oral tablet (2 sources) Penicillin-class Antibacterial Start: 07-26-2022 End: 08-05-2022 take 1 tablet by mouth twice daily amoxicillin (AMOXIL) 875 mg tablet Indications: Sinobronchitis Take 1 tablet by mouth twice daily for 10 days. 20 tablet 0 07/26/2022 08/05/2022 Active Completed/Discontinued Medications Medication Drug Class(es) Dates Sig (Normalized) Sig (Original) baclofen 10 mg oral tablet (1 source) gamma-Aminobutyri c Acid-ergic Agonist Start: 07-04-2022 take 1 tablet by mouth three times daily for muscle spasms baclofen (LIORESAL) 10 mg tablet take 1 tablet by mouth three times a day if needed for SPASM(S) 0 07/04/2022 Active Problems Active Problems Problem Classification Problem Date Documented Date Episodic/Chronic Coagulation and hemorrhagic disorders (5 sources) Hereditary factor I deficiency disease; Translations: [Hereditary deficiency of other clotting factors] Onset: 05-26-2014 05-26-2014 Chronic Diabetes mellitus without complication (1 source) Other abnormal glucose; Translations: [Impaired glucose tolerance test] Onset: 01-16-2023 Episodic Esophageal disorders (1 source) Gastroesophageal reflux disease 04-15-2023 Chronic Headache; including migraine (5 sources) Migraine with aura; Translations: [Migraine with aura, not intractable, without status migrainosus] Onset: 12-03-2013 12-03-2013 Chronic Miscellaneous mental health disorders (5 sources) Bruxism (teeth grinding); Translations: [Other somatoform disorders] 02-03-2014 Chronic Other screening for suspected conditions (not mental disorders or infectious disease) (1 source) Encounter for screening for cardiovascular disorders; Translations: [Screening for ischemic heart disease] Onset: 10-19-2022 Episodic Other upper respiratory infections (2 sources) Chronic sinusitis; Translations: [Chronic sinusitis, unspecified] Onset: 07-26-2022 Chronic Spondylosis; intervertebral disc disorders; other back problems (2 sources) Degeneration of cervical intervertebral disc; Translations: [Other cervical disc degeneration, unspecified cervical region] Onset: 11-14-2017 11-21-2021 Chronic Spondylosis; intervertebral disc disorders; other back problems (2 sources) Neck pain; Translations: [Cervicalgia] Onset: 10-06-2015 10-06-2015 Episodic Thyroid disorders (2 sources) Hypothyroidism, unspecified; Translations: [Hypothyroidism] Onset: 01-16-2023 04-15-2023 Chronic Past or Other Problems Problem Classification Problem Date Documented Da te Episodic/Chronic Chronic obstructive pulmonary disease and bronchiectasis (3 sources) Bronchitis; Translations: [Bronchitis, not specified as acute or chronic] Onset: 05-02-2022 Episodic Sprains and strains (1 source) Low back strain; Translations: [Strain of muscle, fascia and tendon of lower back, initial encounter] Onset: 10-25-2017 10-25-2017 Episodic Unclassified (1 source) Problem Results Test Name Value Interpretation Reference Range Facil ity Vital Signs Date Time Vital Sign Value Performing Clinician Facility 07-26-2022 10:26-0500 Body temperature 96.3 [degF] Arianna Gaminon DO Work Phone: [facility] 07-26-2022 10:26-0500 Body weight 81.19 kg Arianna Martinez DO Work Phone: [facility] 07-26-2022 10:26-0500 Diastolic blood pressure 84 mm[Hg] Arianna Martinez DO Work Phone: [facility] 07-26-2022 10:26-0500 Heart rate 73 /min Arianna Martinez DO Work Phone: [facility] 07-26-2022 10:26-0500 Respiratory rate 16 /min Arianan Martinez DO Work Phone: [facility] 07-26-2022 10:26-0500 SaO2% (BldA) [Mass fraction] 99 % Arianna Martinez DO Work Phone: [facility] 07-26-2022 10:26-0500 Systolic blood pressure 138 mm[Hg] Arianna Martinez DO Work Phone: [facility] 05-02-2022 09:40-0400 Body temperature 97.39 [degF] Arianna Gaminon DO Work Phone: [facility] 05-02-2022 09:40-0400 Body weight 81.74 kg Arianna Gaminon DO Work Phone: [facility] 05-02-2022 09:40-0400 Diastolic blood pressure 82 mm[Hg] Arianna Martinez DO Work Phone: [facility] 05-02-2022 09:40-0400 Heart rate 64 /min Arianna Gaminon DO Work Phone: [facility] 05-02-2022 09:40-0400 Respiratory rate 18 /min Arianna Gaminon DO Work Phone: [facility] 05-02-2022 09:40-0400 SaO2% (BldA) [Mass fraction] 97 % Arianna Gaminon DO Work Phone: [facility] 05-02-2022 09:40-0400 Systolic blood pressure 140 mm[Hg] Arianna Gaminon DO Work Phone: [facility] NEGATED: Highlighted [id number] 13:37-0400 Body height 162.56 cm Shanell Kendrick AT [facility] Work Phone: NEGATED: Highlighted [id number] 13:37-0400 Body height 163 cm Shanell Kendrick AT [facility] Work Phone: NEGATED: Highlighted [id number] 13:37-0400 Body mass index (BMI) [Ratio] 29.8 kg/m2 Shanell Kendrick AT [facility] Work Phone: NEGATED: Highlighted [id number] 13:37-0400 Body weight 78.47 kg Shanell Kendrick AT [facility] Work Phone: NEGATED: Highlighted [id number] 13:37-0400 Body weight 79 kg Shanell Kendrick AT [facility] Work Phone: Encounters Encounter Date Encounter Type Care Provider Facility Start: 07-19-2023 End: 07-20-2023 ambulatory RAFFI ROSS LIQUOR ESTABLISHMENT MANAGER-OPERATOR/ASSISTANT FOREMAN Facility:B Start: 07-19-2023 End: 07-19-2023 Patient encounter procedure RAFFI Baldemar ROSS LIQUOR ESTABLISHMENT MANAGER-OPERATOR/ASSISTANT FOREMAN [facility] Start: 06-14-2023 End: 06-14-2023 ambulatory RAFFI Baldemar CODY LIQUOR ESTABLISHMENT MANAGER-OPERATOR/ASSISTANT FOREMAN Facility:B Start: 01-16-2023 End: 01-17-2023 ambulatory ALANNAH ALARCON Facility:[id number] Start: 10-19-2022 End: 10-20-2022 ambulatory ALANNAH ALARCON Facility:[id number] Start: 07-26-2022 End: 07-26-2022 ambulatory ALANNAH ALARCON Facility:[id number] Start: 07-26-2022 End: 07-26-2022 Patient encounter procedure Ariannabaldemar Guevaraaeb Martinez DO Work Phone: [facility] [place] Procedures Date Procedure Procedure Detail Performing Clinician Start: 06-14-2023 Esophagogastroduodenoscopy RAFFI HANSEN LIQUOR ESTABLISHMENT MANAGER-OPERATOR/ASSISTANT FOREMAN Start: 07-29-2022 Miscellaneous (qualifier value) SAQIB ROSS LIQUOR ESTABLISHMENT MANAGER-OPERATOR/ASSISTANT FOREMAN Plan of Treatment Date Care Activity Detail Author Start: 07-29-2022 DEPRESSION ASSESSMENT DEPRESSION ASSESSMENT [facility] Start: 03-29-2022 Influenza vaccination [facility] Start: 11-21-2021 End: 11-21-2021 Patient encounter procedure Appointment [facility] Work Phone: Start: 11-07-2021 COVID-19 VACCINE (3 - Booster for Pfizer series) COVID-19 VACCINE (3 - Booster for Pfizer series) [facility] Start: 11-06-2021 HPV TESTING HPV TESTING [facility] Start: 11-06-2021 PAP TESTING PAP TESTING [facility] Start: 08-04-2021 COVID-19 VACCINE (3 - Booster for Pfizer series) COVID-19 VACCINE (3 - Booster for Pfizer series) [facility] Start: 07-29-2021 DEPRESSION ASSESSMENT DEPRESSION ASSESSMENT [facility] Start: 2021 SHINGRIX VACCINE (1 of 2) SHINGRIX VACCINE (1 of 2) [facility] Start: 03-29-2021 Influenza vaccination INFLUENZA (#1) [facility] Start: 11-19-2017 Urine microalbumin profile DTAP,TDAP,TD (2 - Td or Tdap) [facility] Start: 11-06-2017 Mammography MAMMOGRAM [facility] Start: 05-20-2017 LIPID SCREEN LIPID SCREEN [facility] Start: 12-03-2016 DIABETES SCREEN DIABETES SCREEN [facility] Start: 10-03-2016 Adult depression screening assessment DEPRESSION SCREENING [facility] Start: 2016 COLOGUARD (FIT-DNA) COLOGUARD (FIT-DNA) [facility] Start: 2016 Colonoscopy COLONOSCOPY [facility] Start: 2016 COLORECTAL CANCER SCREENING COLORECTAL CANCER SCREENING [facility] Start: [address] COLONOGRAPHY [facility] Start: 2016 FECAL OCCULT BLOOD FECAL OCCULT BLOOD [facility] Start: 2016 SIGMOIDOSCOPY SIGMOIDOSCOPY [facility] Start: 1989 HEPATITIS C SCREENING HEPATITIS C SCREENING [facility] Start: 1976 COVID-19 VACCINE (#1) COVID-19 VACCINE (#1) [facility] Start: 1976 COVID-19 VACCINE (1) COVID-19 VACCINE (1) [facility] Start: 1971 HEPATITIS B (1 of 3 - 3-dose series) HEPATITIS B (1 of 3 - 3-dose series) [facility] Immunizations Immunization Date Immunization Notes Care Provider Amrik pratt 09-28-2014 measles, mumps and rubella virus vaccine Pratheep Pawa Work Phone: [facility] 11-20-2007 tetanus toxoid, redu manuel diphtheria toxoid, and acellular pertussis vaccine, adsorbed Pratheep Pawa Work Phone: [facility] Payers Date Payer Category Payer Unknown MMO MMO [employer] [id number] 2019-Present [phone] [address] [place] [address] PPO [id number] 2018 Unknown [id number] 2018 Unknown ALICIA VARGAS BC BS FEP PPO [id number] 2018-Present [phone] [address] [place] [address] PPO [id number] 2018 Unknown [id number] 1971 Unknown [id number] 1971 Unknown [id number] Social History Date Type Detail Facility Start: 01-01-2014 Tobacco smoking status NHIS Ex-smoker [facility] End: 09-06-2007 History of tobacco use Current smoker [facility] End: 09-06-2007 History of tobacco use Cigarette Smoker [facility] Start: 11-06-2016 End: 07-26-2022 Alcohol intake Current drinker of alcohol (finding) [facility] Start: 05-26-2014 History SDOH Alcohol Comment Case of beer weekly [facility] Start: 1970 Sex Assigned At Not on file [facility] Start: 1970 Sex Assigned At Female A [facility] Start: 11-21-2021 End: 11-21-2021 Assertion Unknown if ever smoked [facility] Work Phone: Start: 12-22-2021 End: 05-02-2022 Exposure to SARS-CoV-2 (event) Not sure [facility] Work Phone: Start: 01-01-2014 Cigarettes smoked current (pack per day) - Reported 1 [facility] Start: 01-01-2014 Tobacco use and exposure Smokeless tobacco non-user [facility] Work Phone: Start: 04-15-2023 Tobacco smoking status Never smoked tobacco (finding) Carolyne Shi [facility] [place] NEGATED: Highlighted rowStart: 11-21-2021 End: 11-21-2021 Employment detail Employment detail [facility] Work Phone: Clinical Notes 10-04-2015 to 07-26-2022 Arianna Martinez, - 07/26/2022 11:37 AM Makayla Martinez DO - 05/02/2022 10:04 AM DAVIDTPreyna Rodarte MD - 12/08/2021 8:16 AM EDT Note Date & Type Note Facility 07-26-2022 Note HNO ID: [id number] Author: Arianna Martinez DO Service: ? 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 PSEUDOEPHEDRINE HCL (SUDAFED ORAL) Take by mouth. esomeprazole (NEXIUM) 40 mg capsule Take 1 capsule by mouth once daily. (Patient not taking: Reported on 07/26/2022) guaifen/dextromethorphan/PE (COUGH AND COLD ORAL) Take by mouth as needed. (Patient not taking: Reported on 07/26/2022) dexAMETHasone (DECADRON) 4 mg tablet Take 1 tablet by mouth once daily. (Patient not taking: Reported on 07/26/2022) 4 tablet 0 urea (CARMOL) 40 % crea Apply 1 application to affected area twice daily. (Patient not taking: No sig reported) 1 Bottle 3 Ibuprofen 200 mg cap Take 200 mg by mouth as needed (Takes 400-800 mg as needed, but does not use daily). (Patient not taking: Reported on 07/26/2022) fluticasone (FLONASE) 50 mcg/actuation nasal spray Use 2 Sprays in each nostril once daily. (Patient not taking: No sig reported) 1 Bottle 2 No current facility-administered medications for this visit. Social History Tobacco Use Smoking status: Former Packs/day: 1.00 Years: 10.00 Pack years: 10.00 Types: Cigarettes Quit date: 09/06/2007 Years since quittin.8 Smokeless tobacco: Never Substance Use Topics Alcohol use: Yes Alcohol/week: 15.0 - 25.0 standard drinks Types: 6 - 10 Cans of Beer (12oz) per week Comment: Case of beer weekly Drug use: No Alcohol Use: Approximately 9 - 15 oz/week [which includes 6-10 Cans of Beer (12oz) per week] (Case of beer weekly) Tobacco Use: 1 packs/day, for 10 years. Quit 09/06/2007. Types: Cigarettes FAMILY HISTORY Problem Relation Age of Onset DVT Mother Blood Disease Mother hypofibronogenemia Coronary Artery Disease Father DC/CABG Hypertension Father Hyperlipidemia Father Stroke Maternal Grandmother Colon Cancer Paternal Grandmother Diabetes Paternal Aunt Review of Systems Constitutional: Positive for chills, fever and malaise/fatigue. HENT: Positive for congestion, sinus pain and sore throat. Respiratory: Positive for cough, sputum production and wheezing. Musculoskeletal: Positive for myalgias. All other systems reviewed and are negative. BP 138/84 Pulse 73 Temp 96.3 Resp 16 Wt 179 lb (81.2kg) SpO2 99% Physical Exam Vitals and nursing note reviewed. Constitutional: Appearance: Normal appearance. HENT: Head: Normocephalic and atraumatic. Nose: Congestion and rhinorrhea present. Mouth/Throat: Pharynx: Posterior oropharyngeal erythema present. Cardiovascular: Rate and Rhythm: Normal rate and regular rhythm. Pulses: Normal pulses. Heart sounds: Normal heart sounds. Pulmonary: Effort: Pulmonary effort is normal. Breath sounds: Wheezing and rhonchi present. Skin: General: Skin is warm. Capillary Refill: Capillary refill takes less than 2 seconds. Neurological: Mental Status: She is alert. Psychiatric: Mood and Affect: Mood normal. ASSESSMENT/PLAN: 1. Sinobronchitis - ICD9: 473.9, 490, ICD10: J32.9, J40 - Will begin treatment with Amoxicillin for 10 days - Supportive care with plenty of fluids, rest, and analgesia prn. Arianna Montejo Martinez [facility] 07-26-2022 History of Present illness Narrative Formatting of this note is different fro m the original. 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 PSEUDOEPHEDRINE HCL (SUDAFED ORAL) Take by mouth. esomeprazole (NEXIUM) 40 mg capsule Take 1 capsule by mouth once daily. (Patient not taking: Reported on 07/26/2022) guaifen/dextromethorphan/PE (COUGH AND COLD ORAL) Take by mouth as needed. (Patient not taking: Reported on 07/26/2022) dexAMETHasone (DECADRON) 4 mg tablet Take 1 tablet by mouth once daily. (Patient not taking: Reported on 07/26/2022) 4 tablet 0 urea (CARMOL) 40 % crea Apply 1 application to affected area twice daily. (Patient not taking: No sig reported) 1 Bottle 3 Ibuprofen 200 mg cap Take 200 mg by mouth as needed (Takes 400-800 mg as needed, but does not use daily). (Patient not taking: Reported on 07/26/2022) fluticasone (FLONASE) 50 mcg/actuation nasal spray Use 2 Sprays in each nostril once daily. (Patient not taking: No sig reported) 1 Bottle 2 No current facility-administered medications for this visit. Social History Tobacco Use Smoking status: Former Packs/day: 1.00 Years: 10.00 Pack years: 10.00 Types: Cigarettes Quit date: 09/06/2007 Years since quittin.8 Smokeless tobacco: Never Substance Use Topics Alcohol use: Yes Alcohol/week: 15.0 - 25.0 standard drinks Types: 6 - 10 Cans of Beer (12oz) per week Comment: Case of beer weekly Drug use: No Alcohol Use: Approximately 9 - 15 oz/week [which includes 6-10 Cans of Beer (12oz) per week] (Case of beer weekly) Tobacco Use: 1 packs/day, for 10 years. Quit 09/06/2007. Types: Cigarettes FAMILY HISTORY Problem Relation Age of Onset DVT Mother Blood Disease Mother hypofibronogenemia Coronary Artery Disease Father DC/CABG Hypertension Father Hyperlipidemia Father Stroke Maternal Grandmother Colon Cancer Paternal Grandmother Diabetes Paternal Aunt Review of Systems Constitutional: Positive for chills, fever and malaise/fatigue. HENT: Positive for congestion, sinus pain and sore throat. Respiratory: Positive for cough, sputum production and wheezing. Musculoskeletal: Positive for myalgias. All other systems reviewed and are negative. BP 138/84 Pulse 73 Temp 96.3 Resp 16 Wt 179 lb (81.2kg) SpO2 99% Physical Exam Vitals and nursing note reviewed. Constitutional: Appearance: Normal appearance. HENT: Head: Normocephalic and atraumatic. Nose: Congestion and rhinorrhea present. Mouth/Throat: Pharynx: Posterior oropharyngeal erythema present. Cardiovascular: Rate and Rhythm: Normal rate and regular rhythm. Pulses: Normal pulses. Heart sounds: Normal heart sounds. Pulmonary: Effort: Pulmonary effort is normal. Breath sounds: Wheezing and rhonchi present. Skin: General: Skin is warm. Capillary Refill: Capillary refill takes less than 2 seconds. Neurological: Mental Status: She is alert. Psychiatric: Mood and Affect: Mood normal. ASSESSMENT/PLAN: 1. Sinobronchitis - ICD9: 473.9, 490, ICD10: J32.9, J40 - Will begin treatment with Amoxicillin for 10 days - Supportive care with plenty of fluids, rest, and analgesia prn. Arianna Martinez documented in this encounter [facility] 05-02-2022 Note HNO ID: [id number] Author: Arianna Martinez DO Service: ? 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 esomeprazole (NEXIUM) 40 mg capsule Take 1 capsule by mouth once daily. guaifen/dextromethorphan/PE (COUGH AND COLD ORAL) Take by mouth as needed. PSEUDOEPHEDRINE HCL (SUDAFED ORAL) Take by mouth. Ibuprofen 200 mg cap Take 200 mg by mouth as needed (Takes 400-800 mg as needed, but does not use daily). urea (CARMOL) 40 % crea Apply 1 application to affected area twice daily. (Patient not taking: Reported on 05/02/2022) 1 Bottle 3 fluticasone (FLONASE) 50 mcg/actuation nasal spray Use 2 Sprays in each nostril once daily. (Patient not taking: Reported on 05/02/2022) 1 Bottle 2 No current facility-administered medications for this visit. Social History Tobacco Use Smoking status: Former Packs/day: 1.00 Years: 10.00 Pack years: 10.00 Types: Cigarettes Quit date: 09/06/2007 Years since quittin.6 Smokeless tobacco: Never Substance Use Topics Alcohol use: Yes Alcohol/week: 15.0 - 25.0 standard drinks Types: 6 - 10 Cans of Beer (12oz) per week Comment: Case of beer weekly Drug use: No Alcohol Use: Approximately 9 - 15 oz/week [which includes 6-10 Cans of Beer (12oz) per week] (Case of beer weekly) Tobacco Use: 1 packs/day, for 10 years. Quit 09/06/2007. Types: Cigarettes FAMILY HISTORY Problem Relation Age of Onset DVT Mother Blood Disease Mother hypofibronogenemia Coronary Artery Disease Father DC/CABG Hypertension Father Hyperlipidemia Father Stroke Maternal Grandmother Colon Cancer Paternal Grandmother Diabetes Paternal Aunt Review of Systems Respiratory: Positive for cough and sputum production. All other systems reviewed and are negative. BP 140/82 Pulse 64 Temp (Src) 97.4 (Temporal) Resp 18 Wt 180 lb 3.2 oz (81.7kg) SpO2 97% Physical Exam Vitals and nursing note reviewed. Constitutional: Appearance: Normal appearance. HENT: Head: Normocephalic and atraumatic. Right Ear: Tympanic membrane normal. Left Ear: Tympanic membrane normal. Nose: Nose normal. Mouth/Throat: Mouth: Mucous membranes are moist. Eyes: Conjunctiva/sclera: Conjunctivae normal. Cardiovascular: Rate and Rhythm: Normal rate and regular rhythm. Pulses: Normal pulses. Heart sounds: Normal heart sounds. Pulmonary: Effort: Pulmonary effort is normal. Breath sounds: Wheezing and rhonchi present. Skin: General: Skin is warm. Neurological: General: No focal deficit present. Mental Status: She is alert. Psychiatric: Mood and Affect: Mood normal. ASSESSMENT/PLAN: 1. Bronchitis - ICD9: 490, ICD10: J40 Arianna Montejo [facility] 05-02-2022 History of Present illness Narrative Formatting of this note is different fro m the original. 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 esomeprazole (NEXIUM) 40 mg capsule Take 1 capsule by mouth once daily. guaifen/dextromethorphan/PE (COUGH AND COLD ORAL) Take by mouth as needed. PSEUDOEPHEDRINE HCL (SUDAFED ORAL) Take by mouth. Ibuprofen 200 mg cap Take 200 mg by mouth as needed (Takes 400-800 mg as needed, but does not use daily). urea (CARMOL) 40 % crea Apply 1 application to affected area twice daily. (Patient not taking: Reported on 05/02/2022) 1 Bottle 3 fluticasone (FLONASE) 50 mcg/actuation nasal spray Use 2 Sprays in each nostril once daily. (Patient not taking: Reported on 05/02/2022) 1 Bottle 2 No current facility-administered medications for this visit. Social History Tobacco Use Smoking status: Former Packs/day: 1.00 Years: 10.00 Pack years: 10.00 Types: Cigarettes Quit date: 09/06/2007 Years since quittin.6 Smokeless tobacco: Never Substance Use Topics Alcohol use: Yes Alcohol/week: 15.0 - 25.0 standard drinks Types: 6 - 10 Cans of Beer (12oz) per week Comment: Case of beer weekly Drug use: No Alcohol Use: Approximately 9 - 15 oz/week [which includes 6-10 Cans of Beer (12oz) per week] (Case of beer weekly) Tobacco Use: 1 packs/day, for 10 years. Quit 09/06/2007. Types: Cigarettes FAMILY HISTORY Problem Relation Age of Onset DVT Mother Blood Disease Mother hypofibronogenemia Coronary Artery Disease Father DC/CABG Hypertension Father Hyperlipidemia Father Stroke Maternal Grandmother Colon Cancer Paternal Grandmother Diabetes Paternal Aunt Review of Systems Respiratory: Positive for cough and sputum production. All other systems reviewed and are negative. BP 140/82 Pulse 64 Temp (Src) 97.4 (Temporal) Resp 18 Wt 180 lb 3.2 oz (81.7kg) SpO2 97% Physical Exam Vitals and nursing note reviewed. Constitutional: Appearance: Normal appearance. HENT: Head: Normocephalic and atraumatic. Right Ear: Tympanic membrane normal. Left Ear: Tympanic membrane normal. Nose: Nose normal. Mouth/Throat: Mouth: Mucous membranes are moist. Eyes: Conjunctiva/sclera: Conjunctivae normal. Cardiovascular: Rate and Rhythm: Normal rate and regular rhythm. Pulses: Normal pulses. Heart sounds: Normal heart sounds. Pulmonary: Effort: Pulmonary effort is normal. Breath sounds: Wheezing and rhonchi present. Skin: General: Skin is warm. Neurological: General: No focal deficit present. Mental Status: She is alert. Psychiatric: Mood and Affect: Mood normal. ASSESSMENT/PLAN: 1. Bronchitis - ICD9: 490, ICD10: J40 Arianna Martinez documented in this encounter [facility] 01-01-2022 Note HNO ID: [id number] Author: RT Janet(R) Service: Nuclear Medicine Author Type: Technologist Type: Progress Notes Filed: 01/01/2022 10:15 AM Note Text: Radiology Service Progress Note PATIENT NAME: Nicholas Butts DATE OF SERVICE: January 01, 2022 TIME: 10:14 AM PATIENT IDENTITY VERIFICATION COMPLETED USING TWO (2) IDENTIFIERS: Name and Date of confirmed by patient verbally. FALL SCREENING: Has the patient had 2 falls in the last year or 1 fall with injury or currently using an Ambulatory Assistive Device (Walker, Cane, Wheelchair, Crutches, etc.)? No PATIENT GENDER DATA: Female. status: : No status: NO. PATIENT RELEVANT IMPLANT DATA REVIEWED: Not Applicable RADIOLOGY DEPARTMENT: General X-ray: Exam(s) Completed: Spine X-Ray(s): Lumbar AP / LAT / L5-S1 PERIPHERAL IV DATA: Not applicable SIGNED BY: RT Janet(R) January 01, 2022 10:[address] [facility] 12-08-2021 History of Present illness Narrative DATE OF SERVICE: 12/08/2021 REASON FOR VISIT: Sore throat and drainage. HISTORY OF THE PRESENT ILLNESS: This is a 51-year-old female who presented with runny nose, drainage, sore throat, scratchy throat for the last 3 to 4 days. Some sinus pressure. No fever, no shortness of breath, does not complain of coughing. She does not hurt much when she swallows. No other problem at this visit. REVIEW OF SYSTEMS: Review of other systems normal. ALLERGIES: SULFA. MEDICATIONS: Tylenol. PHYSICAL EXAMINATION: She is awake, alert, not in distress. No dyspnea. Temperature 97.4, blood pressure 145/80, pulse 72, respirations 19, pulse oximetry 97% on room air. Pain score 3/10. HEENT: Remarkable for mild nasal congestion. Throat: Not injected. No postnasal drip. No significant paranasal sinus tenderness. Chest: Clear to auscultation. Heart: Regular rate and rhythm. ASSESSMENT: Upper respiratory tract infection. PLAN: Clinical plan was discussed with patient in detail. I explained to her that I [facility] PATIENT NAME: NICHOLAS BUTTS [address] Benjamin MEDICAL REC #: [id number] [place] [address] [facility] PHYSICIAN do not see an immediate need of antibiotic right now. She should use ygot-fwh-irtofuv medicine as needed, drink a lot of fluids, use saline nasal spray. If there is no improvement in the next 4 or 5 days or if her symptoms get worse, I have given her a prescription of amoxicillin 875 mg twice a day for 10 days, a prescription to keep. If she gets better, she need not to fill, but if she does not get better, she can fill the antibiotics. She may also follow up with her doctor as needed. Patient understood and agreed. She was given a slip that she was seen here today. Ilana Rodarte MD PP/[id number] SSI File#: [id number] END OF DOCUMENT / CHANGE LOG FOLLOWS Last Edited By Carlos. Signed By Ilana Rodarte MD #PAWPR Ilana Rodarte MD #PAWPR on 12/08/2021 10:23 ET on 12/08/2021 10:23 ET Revision Number - 2 [facility] PATIENT NAME: NICHOLAS BUTTS Fiona Benjamin MEDICAL REC #: [id number] [place] [address] [facility] PHYSICIAN Verified/Reviewed by 12/08/21 Linda3 JAVIER [facility] PATIENT NAME: NICHOLAS BUTTS Fiona Benjamin MEDICAL REC #: [id number] [place] [address] [facility] PHYSIC[facility] documented in this encounter [facility] documented as of this encounter (statuses as of 10/08/2021) [facility]03-[facility] History of Past illness Narrative* Problem Noted Date Resolved Date Left arm pain 10/04/2015 11/06/2016 Cervicalgia 08/05/2015 11/06/2016 Shoulder impingement 08/05/2015 11/06/2016 documented as of this encounter (statuses as of 12/08/2021) [facility] History of Past illness Narrative* Problem Noted Date Resolved Date Left arm pain 10/04/2015 11/06/2016 Cervicalgia 08/05/2015 11/06/2016 Shoulder impingement 08/05/2015 11/06/2016 documented as of this encounter (statuses as of 01/05/2022) [facility] History of Past illness Narrative* Problem Noted Date Resolved Date Left arm pain 10/04/2015 11/06/2016 Cervicalgia 08/05/2015 11/06/2016 Shoulder impingement 08/05/2015 11/06/2016 documented as of this encounter (statuses as of 05/02/2022) [facility] History of Past illness Narrative* Problem Noted Date Resolved Date Left arm pain 10/04/2015 11/06/2016 Cervicalgia 08/05/2015 11/06/2016 Shoulder impingement 08/05/2015 11/06/2016 documented as of this encounter (statuses as of 08/01/2022) [facility] note No data available for this section [facility] Evaluation noteNo assessment information availableSt[facility] Work Phone: Evaluation noteThere may be information available, but it has not been provided by the sender.[facility] Work Phone: Evaluation note* Diagnosis Bronchitis- Primary Bronchitis, not specified as acute or chronic documented in this encounter [facility] note* Diagnosis Sinobronchitis- Primary Unspecified sinusitis (chronic) [facility] No data available for this section [facility] InstructionsNo information available.[facility] Work Phone: Progress note No data available for this section [facility] Advance Directives No Advanced Directives Records FoundDocuments on File 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 YES October 08, 2021 12:40pm [facility]? NO September 12:40pm Advance Directive Response Recorded Date/ Time regarding your healthcare decisions? YES December 08, 2021 8:16am [facility]? NO December 08, 2021 8:16am Chief Complaint Chief Complaint Description Start Date neck pain Preliminary chief co mplaint data, not yet signed by the author as of Family History There may be information available, but it has not been provided by the sender.No Family History Records FoundNo Family History Records FoundNo Family History Records Found No data available for this section No Family History Records Found Summary Purpose Additional Source Comments Source Comments (unrecognize d section and content) In the event this informatio n is protected by the Federal Confidentiality of Alcohol and Drug Abuse Patient Records regulations: The Federal rules restrict any use of the information to criminally investigate or prosecute any alcohol or drug abuse patient.[facility] the event this information is protected by the Federal Confidentiality of Alcohol and Drug Abuse Patient Records regulations: The Federal rules restrict any use of the information to criminally investigate or prosecute any alcohol or drug abuse patient.[facility] the event this information is protected by the Federal Confidentiality of Alcohol and Drug Abuse Patient Records regulations: The Federal rules restrict any use of the information to criminally investigate or prosecute any alcohol or drug abuse patient.[facility] the event this information is protected by the Federal Confidentiality of Alcohol and Drug Abuse Patient Records regulations: The Federal rules restrict any use of the information to criminally investigate or prosecute any alcohol or drug abuse patient.[facility] the event this information is protected by the Federal Confidentiality of Alcohol and Drug Abuse Patient Records regulations: The Federal rules restrict any use of the information to criminally investigate or prosecute any alcohol or drug abuse patient.[facility] Goals (unrecognized section and content) Goals may be documented in a n alternate sectionGoals may be documented in an alternate section No data available for this section Reason for Visit (unrecogniz ed section and content) Reason Comments Cough Started 1 week ago, Home covid negative. Reason Comments Nasal Congestion 6 days INFORMATION SOURCE (unrecogn ized section and content) DATE CREATED AUTHOR AUTHOR'S ORGANIZ ATION 01/01/[address] 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 This clinical summary was aggregated from multiple sources. Caution should be exercised in using it in the provision of clinical care. This summary normalizes information from multiple sources, and as a consequence, information in this document may materially change the coding, format and clinical context of patient data. In addition, data may be omitted in some cases. CLINICAL DECISIONS SHOULD BE BASED ON THE PRIMARY CLINICAL RECORDS. [employer] [facility]. provides no warranty or guarantee of the accuracy or completeness of information in this document.
== END | disposition home or self-care (01) ==
LOC: OPBI 08:46
PROVIDERS: PCP Registered Nurse; Referring Provider Nurse Practitioner Women's Health; Visit Provider Nurse Practitioner Women's Health
DX: Z12.31 Encounter for screening mammogram for malignant neoplasm of breast (principal)
CPT/HCPCS: 77063; 77067

== ENCOUNTER → 2023-09-30 | Outpatient (CLI) | payer BC, SELFPAY ==
--- NOTE | 2023-09-30 07:55 | US_ITS ---
STUDY: ULTRASOUND BREAST - RIGHT REASON FOR EXAM: Female, 53 years old. Abnormal screening mammogram TECHNIQUE: Axial and longitudinal images of the RIGHT breast were performed with a high resolution ultrasound transducer. # OF IMAGES: 66 COMPARISON: 09/26/2023 FINDINGS: RIGHT Breast: Heterogeneous echogenic echotexture. At 9:00, 8 cm from the nipple, ultrasound confirms a 7 mm oval parallel microlobulated hypoechoic mass not consistent with a simple cyst and therefore ultrasound-guided vacuum-assisted core biopsy is recommended.: US/Breast Limited Unilateral IMPRESSION: Ultrasound confirms a 7 mm oval hypoechoic mass and ultrasound-guided vacuum-assisted core biopsy is recommended. ASSESSMENT CATEGORY: BIRADS Category 4: Suspicious. Biopsy Should Be Considered. A letter regarding these results will be sent to the patient by the facility within 30 days. Electronically Signed: Prieto Crouch MD at 11:34 EST ,
== END | disposition home or self-care (01) ==
LOC: OPUS 07:53
PROVIDERS: PCP Registered Nurse; Referring Provider Nurse Practitioner Women's Health; Visit Provider Nurse Practitioner Women's Health
DX: N63.12 Unspecified lump in the right breast, upper inner quadrant (principal)
CPT/HCPCS: 76642

== ENCOUNTER → 2023-10-17 | Outpatient (CLI) | payer BC, SELFPAY ==
--- NOTE | 2023-10-17 14:01 | US_ITS ---
ULTRASOUND GUIDED CORE BIOPSY REASON FOR EXAM: Female, 53 years old. ABN MAMM PERTINENT HISTORY: Abnormal screening mammogram and right breast ultrasound. COMPARISON: None. TECHNIQUE: (All elements of maximal sterile barrier technique followed, including US elements as applicable) Upon arrival to the breast imaging department the patient''s identification was confirmed and the RIGHT breast was marked according to time-out protocol. Ultrasound guided core biopsy and clip placement, to include potential risks and complications, was explained in full to the patient. Written and verbal consent were obtained prior to initiation of the procedure. The RIGHT breast was prepped and draped in standard sterile fashion and local anesthesia was obtained with 1% buffered lidocaine. A small dermatotomy was then made to introduce the core biopsy needle. Under ultrasound guidance multiple core samples were obtained with a 14 gauge needle and submitted in formalin for pathology. A titanium clip was then deployed into the biopsy cavity under ultrasound guidance. Upon completion of the procedure hemostasis was obtained and sterile dressing was applied. The patient tolerated the entire procedure without immediate complication and was discharged from the breast imaging department in good condition. US/US Breast Biopsy 1st Lesion IMPRESSION: Ultrasound guided core biopsy of a mass in the RIGHT breast at the 9:00 position of the breast at 8 cm from nipple. without complication. Electronically Signed: Leon Lemus MD at 15:52 EDT ,
--- NOTE | 2023-10-17 14:30 | BRBX_PTH ---
PATIENT: NICHOLAS BUTTS LOC: U#:[id number] AGE/SX: 53/F ROOM: RE10/17/[address]: Dr. Ralph Santoyo MD : 1970 BED: DIS: 10/17/2023 SPEC #: [id number] RECD: 10/17/23 14:56 STATUS: BRAYAN REMary #: [id number] YADY: 10/17/23 14:[address]: Ralph Santoyo DEPT: SURGICAL PATHOLOGY RECD BY: Miguelina Schreiber ENTERED: 10/18/23 08:48 SP TYPE: BREAST BX OTHR DR: Roma Fried, CRAFT ARTIST-Monica Tissues: Right breast, NOS Procedures: Surgery Specimen Level IV HEADER OPERATION: Right breast biopsy PRE-OP DIAGNOSIS: Right breast mass TISSUE SUBMITTED: Right breast mass , 9:00 8cm from nipple MICROSCOPIC DIAGNOSIS Right breast at 9 o'clock, core biopsy; Collagenized fibroadenoma. AM/mr 10/21/2023 MICROSCOPIC DESCRIPTION Slides are reviewed. GROSS DESCRIPTION Received in fixative is one container labeled with the patient's name and designated right breast. The specimen consists of multiple elongated fragments of ocampo-yellow fibroadipose tissue that in aggregate measure 1.5 x 0.5 x 0.1 cm. The entire specimen is submitted in one cassette. / SJ:mr 10/18/2023 TC:5 CPT: 37209
--- NOTE | 2023-10-17 14:46 | PCM.OPRPT ---
Report of Operation Date of Procedure: 10/17/23 Pre-Operative Diagnosis: Right breast lesion Post-Operative Diagnosis: Same Surgery/Procedure Performed:: Ultrasound-guided core needle right breast biopsy Type of Anesthesia: Local Specimen's removed: Right breast biopsy Description of Procedure: The patient's right breast was inspected and the area was localized. Lateral to this an area of skin was prepped and then injected with local anesthetic. A small carmine was made with a scalpel. 14-gauge biopsy needle was placed adjacent to the mass under ultrasound guidance and then fired through the mass. Several biopsies were obtained. A titanium clip was then placed under ultrasound guidance into the area. Patient tolerated the procedure well. A Steri-Strip and bandage were placed over the incision. I will call her with results next week
== END | disposition home or self-care (01) ==
PROVIDERS: PCP Registered Nurse; Referring Provider Surgery; Visit Provider Surgery
DX: N63.15 Unspecified lump in the right breast, overlapping quadrants (principal)
CPT/HCPCS: 19083; 88305

== ENCOUNTER → 2024-04-07 | Outpatient (CLI) | payer BC, SELFPAY ==
--- NOTE | 2024-04-07 08:44 | US_ITS ---
STUDY: ULTRASOUND BREAST - RIGHT REASON FOR EXAM: Female, 53 years old. 6 month follow-up for right breast biopsy. TECHNIQUE: Axial and longitudinal images of the RIGHT breast were performed with a high resolution ultrasound transducer. # OF IMAGES: 8 COMPARISON: Comparison is made with prior sonogram dated September 30, 2023. FINDINGS: RIGHT Breast: Stable 6 mm x 6 mm x 3 mm hypoechoic solid nodule at the 9:00 position of the breast at 7 cm from the nipple. A clip marker is seen within it. US/Breast Limited Unilateral IMPRESSION: Stable appearance. ASSESSMENT CATEGORY: BIRADS Category 2: Benign. A letter regarding these results will be sent to the patient by the facility within 30 days. Electronically Signed: Leon Lemus MD at 14:58 EDT ,
== END | disposition home or self-care (01) ==
LOC: OPUS 08:44
PROVIDERS: PCP Registered Nurse; Referring Provider Surgery; Visit Provider Surgery
DX: R92.8 Other abnormal and inconclusive findings on diagnostic imaging of breast (principal)
CPT/HCPCS: 76642

== ENCOUNTER → 2024-09-22 | Outpatient (CLI) | payer OTHER, BC, SELFPAY ==
[2024-09-24 21:07] LABS: HPV APTIMA, High Risk Negative (Negative)
== END | disposition home or self-care (01) ==
LOC: LABSPEC 10:45
PROVIDERS: PCP Registered Nurse; Referring Provider Nurse Practitioner Women's Health; Visit Provider Nurse Practitioner Women's Health
DX: Z12.4 Encounter for screening for malignant neoplasm of cervix (principal)
CPT/HCPCS: 87624; 88175; G0145